=== PATIENT | female | born 1980 | race African-American/Black ===

== ENCOUNTER 2022-10-07 13:36 | Emergency (ER) | payer OTHER ==
[2022-10-07 13:50] VITALS: BP 123/85; PULSE 95; RESP 18; TEMP 99.4; BMI 43.9
== END 2022-10-07 14:06 | disposition home or self-care (01) ==
LOC: FER 13:36
DX: R05.9 Cough, unspecified (principal); R06.02 Shortness of breath; J45.30 Mild persistent asthma, uncomplicated
CPT/HCPCS: 99283-25